=== PATIENT | female | born 1975 | race Caucasian/White ===

== ENCOUNTER 2017-11-17 11:45 | Inpatient (IN) ==
[2017-11-17] MEDS ORDERED: ONDANSETRON 4 MG/2 ML VIAL IV STA ×2 (13:03→13:56)
[2017-11-17] MEDS ORDERED: MORPHINE 4 MG/1 ML VIAL IV STA (13:03)
[2017-11-17] MEDS ORDERED: MORPHINE 4 MG/1 ML VIAL ONE (13:14)
[2017-11-17] MEDS ORDERED: ONDANSETRON 4 MG/2 ML VIAL ONE ×2 (13:14→13:56)
[2017-11-17] MEDS ORDERED: HYDROmorphone 2 MG/1 ML VIAL ONE (13:55)
[2017-11-17] MEDS ORDERED: HYDROmorphone 2 MG/1 ML VIAL IV STA (13:56)
[2017-11-17] MEDS ORDERED: ACETAMINOPHEN 325 MG TABLET PO ONE (15:31)
[2017-11-17] MEDS ORDERED: ACETAMINOPHEN 325 MG TABLET ONE (15:32)
[2017-11-17 15:45] LABS: Basophils % 0.3 % (0.0-0.8); Eosinophils # 0.2 10*3/uL (0.0-0.87); Hemoglobin 16.8 GM/DL (12.0-16.0); Immature Granulocytes % 1.6 %; Immature Granulocytes Absolute 0.23 #; Lymphocytes # 4.3 10*3/uL (1.4-4.0); Lymphocytes % 29.2 % (21.3-54.2); Mean Corpuscular HGB Conc 35.7 GM/DL (32-36); Mean Corpuscular Hemoglobin 31 PG (27-34); Mean Corpuscular Volume 86.6 FL (87-102); Mean Platelet Volume 11.3 FL (9.6-12.0); Monocytes # 1.1 10*3/uL (0.11-0.8); Monocytes % 7.1 % (1.7-12.7); Neutrophils % 60.8 % (38.7-73.9); Platelet Count 224 T/CUMM (130-400); Red Blood Count 5.43 MC/CUMM (3.8-5.5); Red Cell Distribution Width 13.2 % (9.3-17.3); White Blood Count 14.8 T/CUMM (4-12)
[2017-11-17 16:00] LABS: Calcium 9.6 MG/DL (8.5-10.1); Osmolality,Calculated 270.8 MOS/KG (273-304); Potassium 3.1 MMOL/L (3.5-5.1)
[2017-11-17] MEDS ORDERED: NICOTINE 21 MG/24 HR PATCH TRANSDERM PRN (17:12)
[2017-11-17] MEDS: KETOROLAC 30 MG/1 ML VIAL IV PRN (18:37)
[2017-11-17] MEDS ORDERED: HYDROmorphone 2 MG/1 ML VIAL IV ONE (19:18)
[2017-11-17 19:36] LABS: Apearance,Urine CLEAR (Clear); Bacteria,Urine Occasional /HPF (Few); Bilirubin,Urine Negative (Negative); Blood, Urine Negative (Negative); Glucose,Urine (UA) Negative (Negative); Ketones,Urine 5 mg/dL (Negative); Mucus,Urine Occasional /LPF (Occasional); Nitrite,Urine Negative (Negative); Protein,Urine Negative; RBC,Urine 1 /HPF (0-4); Squamous Epithelial Cell,Urine Occasional /HPF (0-10); Urine Color Yellow (Yellow); Urine Specific Gravity 1.026 (1.001-1.035); WBC,Urine 1 /HPF (0-6)
[2017-11-17] MEDS: HYDROmorphone 2 MG/1 ML VIAL IV SCH ×2 (20:08→21:56)
[2017-11-17] MEDS: ENOXAPARIN 40 MG/0.4 ML SYRINGE SUBCUT SCH (21:51)
[2017-11-17] MEDS: DULoxetine 30 MG CAPSULE PO SCH (22:38)
[2017-11-18] MEDS: HYDROmorphone 2 MG/1 ML VIAL IV SCH ×7 (00:37→15:34)
[2017-11-18] MEDS: ONDANSETRON 4 MG/2 ML VIAL IV PRN ×3 (01:33→21:09)
[2017-11-18] MEDS: KETOROLAC 30 MG/1 ML VIAL IV PRN ×2 (03:58→09:00)
[2017-11-18] MEDS ORDERED: ONDANSETRON 4 MG/2 ML VIAL IV ONE (04:30)
[2017-11-18 05:46] LABS: Basophils % 0.2 % (0.0-0.8); Eosinophils # 0.1 10*3/uL (0.0-0.87); Eosinophils % 1.2 % (0.00-10.9); Hematocrit 41.4 VOL% (35.7-47.0); Hemoglobin 14.3 GM/DL (12.0-16.0); Immature Granulocytes % 1.2 %; Immature Granulocytes Absolute 0.12 #; Lymphocytes # 2.5 10*3/uL (1.4-4.0); Lymphocytes % 25.6 % (21.3-54.2); Mean Corpuscular HGB Conc 34.5 GM/DL (32-36); Mean Corpuscular Hemoglobin 31 PG (27-34); Mean Corpuscular Volume 89.6 FL (87-102); Mean Platelet Volume 10.6 FL (9.6-12.0); Monocytes # 0.6 10*3/uL (0.11-0.8); Monocytes % 5.9 % (1.7-12.7); Neutrophils # 6.3 10*3/uL (1.4-7.4); Neutrophils % 65.9 % (38.7-73.9); Platelet Count 150 T/CUMM (130-400); Red Blood Count 4.62 MC/CUMM (3.8-5.5); Red Cell Distribution Width 13.1 % (9.3-17.3); White Blood Count 9.6 T/CUMM (4-12)
[2017-11-18 06:15] LABS: Calcium 8.8 MG/DL (8.5-10.1); Osmolality,Calculated 282.3 MOS/KG (273-304)
[2017-11-18] MEDS ORDERED: ACETAMINOPHEN 325 MG TABLET PO PRN (08:16)
[2017-11-18] MEDS: POTASSIUM CHLORIDE 20 MEQ TABLET PO PRN ×4 (09:02→16:53)
[2017-11-18] MEDS: PANTOPRAZOLE 40 MG TABLET PO SCH (09:03)
[2017-11-18] MEDS: SODIUM CHLORIDE 0.9% 1,000 ML IV SCH (09:03)
[2017-11-18] MEDS ORDERED: BUTALBITAL/ACETAMIN/CAFFEINE 50-325-40 MG TABLET PO PRN (12:00)
[2017-11-18] MEDS ORDERED: SUMAtriptan 6 MG/0.5 ML VIAL SUBCUT ONE (13:00)
[2017-11-18] MEDS: POTASSIUM CHLORIDE 20 MEQ TABLET PO SCH ×3 (13:16→18:26)
[2017-11-18] MEDS: fentaNYL 100 MCG/2 ML VIAL IV PRN ×3 (13:27→21:01)
[2017-11-18] MEDS: DULoxetine 30 MG CAPSULE PO SCH (21:03)
[2017-11-18] MEDS: ENOXAPARIN 40 MG/0.4 ML SYRINGE SUBCUT SCH (21:11)
[2017-11-19] MEDS: fentaNYL 100 MCG/2 ML VIAL IV PRN ×5 (01:41→20:49)
[2017-11-19] MEDS: SODIUM CHLORIDE 0.9% 1,000 ML IV SCH ×3 (01:48→11:31)
[2017-11-19] MEDS: PANTOPRAZOLE 40 MG TABLET PO SCH (08:43)
[2017-11-19] MEDS: POTASSIUM CHLORIDE 20 MEQ TABLET PO PRN ×4 (08:44→15:04)
[2017-11-19] MEDS ORDERED: POTASSIUM CHLORIDE 20 MEQ TABLET PO ONE (15:23)
[2017-11-19] MEDS: BISACODYL 5 MG TABLET PO PRN (20:49)
[2017-11-19] MEDS: ENOXAPARIN 40 MG/0.4 ML SYRINGE SUBCUT SCH (20:49)
[2017-11-19] MEDS: DULoxetine 30 MG CAPSULE PO SCH (20:49)
[2017-11-20] MEDS: ONDANSETRON 4 MG/2 ML VIAL IV PRN ×4 (00:46→21:21)
[2017-11-20] MEDS: fentaNYL 100 MCG/2 ML VIAL IV PRN ×6 (00:46→21:20)
[2017-11-20 05:08] LABS: Basophils % 0.3 % (0.0-0.8); Eosinophils # 0.1 10*3/uL (0.0-0.87); Eosinophils % 1.3 % (0.00-10.9); Hematocrit 38.4 VOL% (35.7-47.0); Hemoglobin 12.9 GM/DL (12.0-16.0); Immature Granulocytes Absolute 0.08 #; Lymphocytes # 2.6 10*3/uL (1.4-4.0); Lymphocytes % 32.2 % (21.3-54.2); Mean Corpuscular HGB Conc 33.6 GM/DL (32-36); Mean Corpuscular Hemoglobin 31 PG (27-34); Mean Corpuscular Volume 92.5 FL (87-102); Mean Platelet Volume 11.3 FL (9.6-12.0); Monocytes # 0.5 10*3/uL (0.11-0.8); Monocytes % 5.7 % (1.7-12.7); Neutrophils # 4.7 10*3/uL (1.4-7.4); Neutrophils % 59.5 % (38.7-73.9); Platelet Count 123 T/CUMM (130-400); Red Blood Count 4.15 MC/CUMM (3.8-5.5); Red Cell Distribution Width 13.1 % (9.3-17.3); White Blood Count 7.9 T/CUMM (4-12)
[2017-11-20 05:36] LABS: Risk Ratio 3.72; VLDL CHOLESTEROL 22.6 MG/DL
[2017-11-20 05:42] LABS: Calcium 8.1 MG/DL (8.5-10.1); Osmolality,Calculated 279.1 MOS/KG (273-304)
[2017-11-20] MEDS: PANTOPRAZOLE 40 MG TABLET PO SCH (08:44)
[2017-11-20] MEDS: BISACODYL 5 MG TABLET PO PRN (08:44)
[2017-11-20] MEDS: DULoxetine 30 MG CAPSULE PO SCH (21:26)
[2017-11-20] MEDS: ENOXAPARIN 40 MG/0.4 ML SYRINGE SUBCUT SCH (21:28)
[2017-11-21] MEDS: fentaNYL 100 MCG/2 ML VIAL IV PRN ×2 (01:18→06:41)
[2017-11-21] MEDS: PANTOPRAZOLE 40 MG TABLET PO SCH (08:20)
[2017-11-21] MEDS: ONDANSETRON 4 MG/2 ML VIAL IV PRN (08:20)
[2017-11-21 08:26] VITALS: BP 114/68
[2017-11-21] MEDS: KETOROLAC 30 MG/1 ML VIAL IV PRN (10:48)
== END 2017-11-21 10:54 | disposition home or self-care (01) | DRG 552 ==
LOC: N.ED 11:45 → N.EDINP 11:45 → N.2E 18:00
PROVIDERS: ADMIT Internal Medicine; ATTEND Internal Medicine